=== PATIENT | female | born 1980 | race Caucasian/White ===

== ENCOUNTER → 2018-01-28 | Day surgery (SDC) | payer OTHER ==
[~2018-01-28] VITALS: Ht 172.7 cm; Wt 122.9 kg
[~2018-01-28] MED LIST: CELEXA20 M1; GLUCOPHAGE1000 M1 PO; HYCET 7.5 MG-3473 ML PO; LOPID600 MG PO; PEPCID20 M1 PO; PROBIOTIC1 EACH PO; PROTONIX40 M3 PO; SYNTHROID25 MCG PO; VITAMIN D-32000 UNI1 PO
--- NOTE | 2018-01-28 09:18 | Operative Report ---
Operative/Inv Procedure Report Surgery Date: 01/28/18 Name of Procedure: Laparoscopic cholecystectomy, EGD with biopsy Pre-Operative Diagnosis: Cholelithiasis, Morbid Obesity, GERD Post-Operative Diagnosis: Same Estimated Blood Loss: less than 50ml Surgeon/Rec Therapist: Eliot Whitehead DO Anesthesia: general endotracheal tube IV Fluids: 800 cc Drains: None Specimens: Gallbladder, antrum forcep biopsy Complications: None Condition: Stable Operative Indication: This is a 37-year-old female that presented to the office after undergoing a right upper quadrant ultrasound as part of her preoperative workup for bariatric surgery. Patient was found to have gallstones and did admit to some on and off epigastric abdominal pain. A laparoscopic possible open cholecystectomy was discussed in detail. All risks including but not limited to bleeding, infection , bile leak, and injury to surrounding duct/bowel were discussed in detail. I also discussed with the patient doing an upper endoscopy with biopsy of the same time. All risk including but not limited to bleeding were discussed in detail. The patient understood everything and decided to proceed. Operative/Procedure Note Note: The patient was brought to the operating room and placed on the operating room table in supine position. Venodyne stockings were placed and adequate general endotracheal anesthesia was obtained. The patient was prepped and draped in standard surgical fashion. We began the procedure by making a 2 cm transverse incision in the infraumbilical crease. The incision was carried down to the fascia, once the fascia was clearly visualized it was picked up between 2 john clamps. The fascia was divided in the midline and once we entered the peritoneum 2 stay 0 Vicryl sutures were placed on each side. A 12 mm blunt port was inserted and the abdominal cavity was insufflated to 15 mmHg. A 10 mm 30 laparoscope was introduced and upon initial examination no obvious gross pathology was seen. We did note a mildly distended gallbladder in the right upper quadrant. Accessory trocars were placed, all 5 mm, one in the epigastrium and 2 in the right upper quadrant (one in the midclavicular line and one in the anterior axillary line, both 2 fingerbreadths below the costal margin). The gallbladder was grasped with the lateralmost trocar and retracted up over the liver. Using the other 2 accessory trocars the infundibulum was grasped and the peritoneum was lysed using blunt dissection and using hook electrocautery. The cystic duct and cystic artery were visualized. The common bile duct was visualized and it was away from our area of dissection. The cystic duct and artery were skeletonized and divided between clips, 3 clips to stay and one clip on the gallbladder side for the duct and 2 clips to stay and one clip on the gallbladder side for the artery. The gallbladder was dissected off the liver bed using hook electrocautery maintaining hemostasis. Prior to completely removing the gallbladder off the liver bed we examined the area of dissection no obvious bile leak or bleeding was noted, the clips appeared to be in good position. The gallbladder was completely detached from the liver bed. We switched to a 5 mm laparoscope and a 10 mm Endobag was introduced through the umbilical trocar site. The gallbladder was placed in the bag and removed through the umbilicus. The abdomen was reinsufflated. We switched back to a 10 mm laparoscope and examined our area of dissection. No obvious bile leak or bleeding was noted. The right upper quadrant was irrigated until clear. All ports were removed under direct visualization, no obvious bleeding was noted. The umbilical trocar site was closed using 0 Vicryl suture. The skin was closed using 4-0 Monocryl. Steri-Strips and dressings were placed. At that point an upper endoscopy was performed. The endoscope was inserted under direct visualization into the posterior pharynx and into the esophagus. The entirety of the esophagus was examined and appeared normal up to the GE junction. The GE junction appeared normal was traversed with ease. The stomach was entered and the endoscope was advanced to the duodenum which appeared normal. Mild gastritis was noted in the antrum and forceps biopsy was taken to rule out H. pylori. At that point the endoscope was removed under direct visualization suctioning all the air out of the way out. The patient was then successfully extubated and transferred to the recovery room in stable condition. The patient tolerated the procedure well with no complications. Findings: No hiatal hernia, + gallstones, distended gallbladder, mild gastritis CC: Guerita VIDES,Rick Castellanos
== END ==
LOC: STS 02:30
DX: K80.10 Calculus of gallbladder with chronic cholecystitis without obstruction (principal); K21.9 Gastro-esophageal reflux disease without esophagitis; K29.70 Gastritis, unspecified, without bleeding; E66.01 Morbid (severe) obesity due to excess calories; Z68.41 Body mass index [BMI] 40.0-44.9, adult; E11.9 Type 2 diabetes mellitus without complications; Z79.84 Long term (current) use of oral hypoglycemic drugs; E03.9 Hypothyroidism, unspecified; R10.13 Epigastric pain; E78.5 Hyperlipidemia, unspecified
CPT/HCPCS: 81025; 88304; 88305; 88312; J0131; J0690; J2250

== ENCOUNTER 2018-04-29 01:39 | Inpatient (IN) | payer OTHER ==
[~2018-04-29] VITALS: Ht 172.7 cm; Wt 110.5 kg
[~2018-04-29 01:39] MED LIST changes: -HYCET 7.5 MG-3473 ML PO; -PROTONIX40 M3 PO
--- NOTE | 2018-04-29 09:28 | Admission Core Measures ---
Acute Coronary Syndrome (CM) ACS Core Measures Acute Coronary Syndrome Diagnosis No Congestive Heart Failure (NEW) CHF Core Measures Congestive Heart Failure Diagnosis No Cerebrovascular Accident CVA Core Measures CVA/TIA Diagnosis No Venous Thromboembolism VTE Core Kevin (View Protocol) VTE Risk Factors Surgery No Mechanical VTE Prophylaxis d/t N/A MechProphylax Ordered No VTE Pharm Prophylaxis d/t NA PharmProphylax ordered Problem List As ranked by this Provider includes Assessment & Plan 1. History of Jackson-en-Y gastric bypass 2. GERD (gastroesophageal reflux disease) 3. Diabetes 4. Morbid obesity 5. Hypothyroidism HOME MEDS Home Med List Famotidine (Pepcid) 20 MG TABLET 1 TAB PO PRN HEARTBURN (Reported) Gemfibrozil (Lopid) 600 MG TABLET 1 TAB PO DAILY CHOLESTEROL (Reported) Lactobacillus Acidophilus (Probiotic) 10 BILLION CELL CAPSULE 1 CAP PO TID SUPPLEMENT (Reported) Levothyroxine Sodium (Synthroid) 25 MCG TABLET 1 TAB PO DAILY REPLACEMENT ( Reported) Metformin HCl (Glucophage) 1,000 MG TABLET 1 TAB PO DAILY DM (Reported)
[2018-04-29] MEDS ORDERED: HYCET 7.5 MG-3473 ML PO (09:30)
[2018-04-29] MEDS ORDERED: PROTONIX40 M3 PO (09:30)
--- NOTE | 2018-04-29 11:59 | Operative Report ---
Operative/Inv Procedure Report Surgery Date: 04/29/18 Name of Procedure: Laparoscopic gastric bypass, laparoscopic small bowel resection Pre-Operative Diagnosis: Morbid Obesity BMI 38, DM, Hypothyroid, Hyperlipidemia Post-Operative Diagnosis: Same Estimated Blood Loss: less than 50ml Surgeon/Manufacturing Process Technician: Eliot Whitehead DO Anesthesia: general endotracheal tube IV Fluids: 1100 cc Drains: 10 Fr RUQ GUERA Drain Specimens: Portion small bowel Complications: None Condition: Stable Operative Indication: This is a 37-year-old female presented to the office for workup for bariatric surgery. After appropriate workup was completed I discussed with the patient the band, the sleeve, and the gastric bypass. The patient chose to undergo a gastric bypass. All risks including but not limited to bleeding, infection, leak, stricture, marginal ulcers, injury to surrounding bowel/esophagus/stomach/ liver/spleen, malabsorption/malnutrition, dumping syndrome, internal hernia/ small bowel obstruction, DVT/PE, and mortality of 09/999 patients were discussed in detail. The patient understood everything and decided to proceed. Operative/Procedure Note Note: The patient was brought to the operating room and placed on the table in supine position. Venodyne stockings were placed and adequate general endotracheal anesthesia was obtained. The patient was prepped and draped in standard surgical fashion. Began the procedure by making a 2 cm transverse incision supraumbilically and slightly to the left of the midline. Then using a 12 mm clear Visiport and a 10 mm 0 laparoscope the abdominal cavity was accessed. Great care was taken to go through the anterior rectus sheath, the posterior rectus sheath, and through the peritoneum. Once we entered the peritoneum the abdominal cavity was insufflated to 15 mmHg. Upon initial examination no obvious gross pathology was seen. Accessory trocars were placed, 5 mm in the epigastrium for the Lois liver retractor. The liver retractor was inserted and the liver was retracted anteriorly exposing the hiatus, no obvious hiatal hernia was seen. 5 mm ports were placed in the right and left upper quadrant, 5 mm left lateral port, and a 12 mm right lateral port. Began the procedure by mobilizing the angle of His and the left jodi of the diaphragm. The stomach was retracted towards the feet and the peritoneum was lysed until the left jodi was clearly visualized. We then brought our attention to the lesser curvature, and at the second vessel we began accessing the retrogastric space. Was done using Harmonic scalpel maintaining hemostasis. Once the retrogastric space was accessed we began creating our pouch using 60 mm purple staple load 4. The pouch was created around an Jeannine tube. Once the pouch was completely disconnected from the gastric remnant we examined the staple lines, some bleeding was noted and that was controlled using endoclips. We then brought our attention to the small bowel, the omentum was retracted above the transverse colon and the ligament of Treitz was identified. The small bowel was run 50 cm and divided using 60 mm weldon staple load. 2 clips were placed on the proximal staple line which was the biliopancreatic limb. That limb was run to the ligament of Treitz to assure that that was the blind limb. Following this the omentum was divided using Harmonic scalpel. After the omentum was divided the small bowel was coming up to the gastric pouch with no tension. At that point a in enterotomy was made 5 cm from the prior divided distal staple line, intermediate between the mesenteric and antimesenteric part. A gastrotomy was made anterior to the staple line. A side to side gastrojejunostomy was created using 45 mm purple staple load approximately 3-3-1/2 cm in diameter. The Jeannine tube was passed through the common enterotomy, and the common enterotomy was closed using 2-0 Vicryl suture in a running fashion double layer. We noted that the blind limb/candy cane of the anastomosis was too long, so a portion was resected using a 60 mm weldon staple load. That small bowel was removed through the 12 mm port site and handed off the field. Following this the small bowel was clamped off distal to the anastomosis, and we preformed an air and a methylene blue leak test. No obvious leak was noted. All the methylene blue was suctioned out. The small bowel was then run 100 cm and an enterotomy was made on the antimesenteric side. Another enterotomy was made on the antimesenteric side of the biliopancreatic limb. A side to side functional end end jejunojejunostomy was created using 60 mm weldon staple load. The common enterotomy was closed using a 60 mm weldon staple load followed by a 45 mm weldon staple load. Some bleeding was noted from the staple line and that was controlled using endoclips as well. The mesenteric defect was closed using 2-0 Tycron suture in an interrupted fashion. At that point we examined both anastomoses no obvious bleeding was noted and both appeared intact. A 2-0 Vicryl suture was placed on the anterior surface of the gastrojejunostomy imbricating the staple line. A 10 Polish GUERA drain was placed through the right upper quadrant incision under the liver and over the spleen. All ports were removed under direct visualization, no obvious bleeding was noted. Skin was closed using 4-0 Monocryl. Steri-Strips and dressings were placed. The patient was successfully extubated and transferred to the recovery room in stable condition. The patient tolerated the procedure well with no complications. Findings: No hiatal hernia, 100 cm alimentary limb CC: Rick Dexter MD
--- NOTE | 2018-04-29 12:35 | Patient Discharge Instructions ---
Discharge Instructions General Discharge Information You were seen/treated for: Morbid Obesity BMI 38, DM, Hypothyroid, Hyperlipidemia You had these procedures: Surgery Date: 04/29/18 Name of Procedure: Laparoscopic gastric bypass, laparoscopic small bowel resection Watch for these problems: fever>101.3, increased pain, redness/swelling/drainage, dizziness, shortness of breath, chest pains No bath, but you may shower: Yes Other wound care: ok to shower. keep incisions clean & dry. leave white steri strips in place. dry guaze dressing changes as needed for previous drain site. Diet Continue normal diet: No Recommended Diet: Bariatric Additional DIET Information: weekly bariatric diet stage advancements as directed, as tolerated Activity Full Activity/No Limits: No Activity Self Limited: Yes Pounds, do NOT lift more than: 10 Other activity limits: no heavy lifting. no strenuous activity. Additional ACTIVITY Info: walk frequently Acute Coronary Syndrome Inclusion Criteria At DC or during hospital stay patient has or had the following: ACS DIAGNOSIS No Discharge Core Measures Meds if any: Prescribed or Continued at Discharge Meds if any: NOT Prescribed or Continued at Discharge Congestive Heart Failure Inclusion Criteria At DC or during hospital stay patient has or had the following: CHF DIAGNOSIS No Discharge Core Measures Meds if any: Prescribed or Continued at Discharge Meds if any: NOT Prescribed or Continued at Discharge Cerebrovascular accident Inclusion Criteria At DC or during hospital stay patient has or had the following: CVA/TIA Diagnosis No Discharge Core Measures Meds if any: Prescribed or Continued at Discharge Meds if any: NOT Prescribed or Continued at Discharge Venous thromboembolism Inclusion Criteria VTE Diagnosis No VTE Type NONE VTE Confirmed by (Test) NONE Discharge Core Measures - Per Current guidelines, there needs to be overlap - treatment for the first 5 days of Warfarin therapy. - If discharged on Warfarin prior to 5 days of - overlap therapy, the patient will need to be - assessed for post discharge needs including - *Post discharge parental anticoagulation - *Warfarin and/or parental anticoagulation education - *Follow up date to check INR post discharge At least 5 days overlap therapy as Inpatient No Meds if any: Prescribed or Continued at Discharge Note: Overlap Therapy is Warfarin and Anticoagulant Meds if any: NOT Prescribed or Continued at Discharge
--- NOTE | 2018-04-29 12:39 | Surg Short-stay <48hrs Dis Sum ---
Visit Information Visit Dates Admission Date: 04/29/18 Discharge Date: 05/01/18 Surgical Short Stay DC Summary Admission Diagnosis: Morbid Obesity (BMI 38), DM, Hypothyroid, Hyperlipidemia Final Diagnosis: Morbid Obesity (BMI 38), DM, Hypothyroid, Hyperlipidemia Procedure(s): Surgery Date: 04/29/18 Name of Procedure: Laparoscopic gastric bypass, laparoscopic small bowel resection Summary/Significant Findings: Electively scheduled laparoscopic gastric bypass, and laparoscopic small bowel resection on 04/29/18 by for history of morbid obesity (BMI 38), DM, hypothyroidism, and hyperlipidemia. Started on stage 1 bariatric diet post- operatively. Upper gi study done on post-op day#1 to rule out leak and obstruction. GUERA drain left in place post-op to monitor drainage, but removed prior to discharge home. Pain control transitioned from iv to oral medication. Accuchecks monitored post-operatively, with sliding scale coverage as needed. No lovenox indicated at the time of discharge, according to the pre-op risk assessment. Condition at Discharge: stable Discharge Disposition: home or self care Discharge instructions provided to patient/family: Yes Post discharge follow-up plan: one week follow up with no lovenox indicated upon discharge Copies to: Guerita VIDES,Rick Castellanos
[2018-04-29 14:00] VITALS: BP 152/90
--- NOTE | 2018-04-29 15:35 | PN- Bariatrics ---
Subjective Subjective: POC feeling ok, some upper abd pain. some facial itching, denies rash. tolerating sips of stg1 diet, no n/v. no oob yet. dtv postop. no cp/sob. Objective Vital Signs and I&Os Vital Signs Date Time Temp Pulse Resp B/P B/P Pulse O2 O2 Flow FiO2 Mean Ox Delivery Rate 04/29 1400 97.9 82 18 152/90 95 Room Air Room Air 04/29 1400 95 Room Air Room Air Intake & Output 04/29 1600 04/29 0800 04/29 0000 04/28 1600 04/28 0800 04/28 0000 Intake Total 90 Output Total 20 Balance 70 Intake, Oral 90 Output, 20 Drainage Patient 244 lb Weight Weight Bed scale Measurement Method Physical Exam: gen- nad [id number] pulm- ctab abd- obese, soft, incisions dressed- scant bloody staining on left sided dressings. Jos in place, approx 20xx serosang in bulb. ext- calves soft nt, alps on bl Assessment/Plan Assessment/Plan A- POD0 sp lap camelia-en-y gastric bypass, with appropriate postop pain, with facial pruritis without rash likely due to anesthesia/pain meds, otherwise stable. P- benadryl prn for itch, though pt doesnt think she needs it just yet stg1 diet, then npo p mn for upper gi study in am dvt ppx am labs prn pain meds oob, ambualate dc planning Core Measures Venous Thromboembolism VTE Risk Factors Surgery No Mechanical VTE Prophylaxis d/t N/A MechProphylax Ordered No VTE Pharm Prophylaxis d/t NA PharmProphylax ordered
[2018-04-29 18:10] VITALS: BP 134/82
[2018-04-29 21:51] VITALS: BP 130/76
[2018-04-30 06:44] VITALS: BP 142/64
--- NOTE | 2018-04-30 07:24 | PN- Bariatrics ---
See Addendum Subjective Subjective: No events overnight. Patient admits to mild incisional pain this morning that is controlled. Did receive Dilaudid x2 but otherwise she states Tylenol is controlling her pain. Tolerated stage 1 diet yesterday without nausea or emesis. Does admit to pain in her pouch when sipping, taking ~ 15 cc at a time. Voiding freely, ambulating the hallway without issue. Passing small amount of flatus. Objective Vital Signs and I&Os Vital Signs Date Time Temp Pulse Resp B/P B/P Pulse O2 O2 Flow FiO2 Mean Ox Delivery Rate 04/30 0644 98.0 83 17 142/64 98 04/30 0600 95 Room Air 04/29 2200 95 Room Air 04/29 2151 98.3 69 17 130/76 98 Room Air 04/29 2104 Room Air 04/29 2000 96 Room Air 04/29 1810 97.5 72 20 134/82 96 Room Air 04/29 1800 94 Room Air Room Air 04/29 1400 97.9 82 18 152/90 95 Room Air Room Air 04/29 1400 95 Room Air Room Air Intake & Output 04/30 0800 08 0000 04/29 1600 04/29 0800 04/29 0000 04/28 1600 Intake Total 1100 1185 90 Output Total 1020 800 20 Balance 80 385 70 Intake, IV 1100 375 Intake, Oral 810 90 Output, 20 50 20 Drainage Output, Urine 1000 750 Patient 244 lb Weight Weight Bed scale Measurement Method Physical Exam: Afebrile, VSS. Cardiac: RRR Pulmonary: CTAB Abdominal: + hypoactive BS, obese, dressings c/d/i, minimal serosanguinous drainage noted to upper left dressings. R GUERA drain in place with serosanguinous drainage (20cc overnight). Soft, mild incisional tenderness to palpation. No rebound or guarding. Assessment/Plan Assessment/Plan A- POD#1 s/p lap camelia-en-y gastric bypass, with appropriate postop pain. Stable post operatively. Plan: - NPO this am for UGI - If UGI wnl will advance diet - Pain medication and antiemetics prn - Encourage OOB/IS/ambulation - Instructed patient to take smaller sips once diet re-advanced - Follow up am labs - DVT ppx - HSQ - dc planning - will d/w Dr. Whitehead Core Measures Venous Thromboembolism VTE Risk Factors Surgery No Mechanical VTE Prophylaxis d/t N/A MechProphylax Ordered No VTE Pharm Prophylaxis d/t NA PharmProphylax ordered
[2018-04-30 10:16] LABS: ABSOLUTE BASOPHIL COUNT 0 /CUMM (0.0-0.2); ABSOLUTE EOSINOPHIL COUNT 0.1 /CUMM (0.0-0.7); ABSOLUTE GRANULOCYTE CT 4.8 /CUMM (1.4-6.5); ABSOLUTE LYMPH COUNT 2.2 /CUMM (1.2-3.4); ABSOLUTE MONOCYTE COUNT 0.7 /CUMM (0.10-0.60); BASOPHIL % 0.5 % (0.0-2.0); EOSINOPHIL % 1.5 % (0-5); GRANULOCYTE % 60.8 % (42.2-75.2); HEMATOCRIT 31.9 % (37-47); MEAN CORPUSCULAR HGB 30.8 PG (27.0-31.0); MEAN CORPUSCULAR HGB CONC 33.9 G/DL (33.0-37.0); MEAN CORPUSCULAR VOLUME 90.6 FL (81.0-99.0); PLATELET COUNT 218 /CUMM (130-400); RED BLOOD CELL CT 3.52 /CUMM (4.20-5.40); WHITE BLOOD CELL COUNT 7.9 /CUMM (4.8-10.8)
--- NOTE | 2018-04-30 11:38 | RADIOLOGY REPORT ---
EXAMINATION: FL UPPER GI SERIES CLINICAL INFORMATION: 37-year-old female status post laparoscopic gastric bypass. Follow-up Gastrografin study. Postop day 1. COMPARISON: None TECHNIQUE: A single contrast upper GI series with fluoroscopy and spot imaging was performed. The patient ingested 60 mL of Gastrografin without difficulty and was evaluated in the upright and recumbent positions. FINDINGS: The scouts radiograph shows postsurgical changes within the epigastric region and also at left mid abdomen. Postsurgical changes of gastric bypass is noted. There is no evidence of any leak seen. Free flow of Gastrografin was noted at the site of the anastomosis into the small bowel loops. Both afferent as well as efferent loops are visualized. FLUOROSCOPY TIME: 0.57 seconds. NUMBER OF IMAGES: 7 series. IMPRESSION: Expected postsurgical changes of gastric bypass without evidence of any leak or obstruction.
[2018-04-30 15:32] VITALS: BP 138/74
[2018-04-30 22:33] VITALS: BP 130/82
[2018-05-01 06:46] VITALS: BP 138/80
--- NOTE | 2018-05-01 08:16 | PN- Bariatrics ---
Subjective Subjective: Reports pain controlled. Tolerating stage 1 diet. No nausea. Passing flatus. Voiding well. Ambulating without difficulty. No dizziness. No shortness of breath. No chest pains. Anticipates discharge to home today. Objective Vital Signs and I&Os Vital Signs Date Time Temp Pulse Resp B/P B/P Pulse O2 O2 Flow FiO2 Mean Ox Delivery Rate 05/01 0646 98.0 63 18 138/80 98 Room Air 05/01 0600 98 Room Air 04/30 2233 98.5 68 20 130/82 99 Room Air 04/30 2200 99 Room Air 04/30 1600 96 Room Air 04/30 1532 98.3 67 18 138/74 97 Room Air 04/30 1400 95 Room Air Room Air Intake & Output 05/01 0805/01 0000 04/30 1600 04/30 0804/30 0000 Intake Total 535 1110 1240 1100 1185 Output Total 330 231 503 5084 800 Balance 205 260 260 80 385 Intake, IV 993 175 0402 1100 375 Intake, Oral 135 760 240 810 Number 1 Bowel Movements Output, 30 30 20 50 Drainage Output, Urine 300 854 955 5021 750 Physical Exam: General - alert & oriented x 3. comfortable. no acute distress. Lungs - clear bilaterally. no w/r/r. Cardiac - s1s2. reg. Abdomen - soft. dressings stained but intact. CAROL drain removed (serosang drainage, 30mls o/n). expected ruddy-incisional tenderness. active bowel sounds. Extremities - warm bilaterally. no c/c/e. calves soft and nontender b/l. Current Medications: Current Medications Sig/Aileen Start time Last Medication Dose Route Stop Time Status Admin Acetaminophen 1,000 MG Q6H 04/29 2000 DC 04/30 N/A 1 UNIT IV 04/30 0814 0803 Citalopram 60 MG DAILY 04/30 09 AC 04/30 Hydrobromide PO 1142 Dexamethasone 8 MG ONCE PRN 04/29 1330 AC IV PUSH Dextrose/Sodium 1,000 ML Q8H 04/29 1330 AC 04/30 Chloride IV 1330 Heparin Sodium 5,000 UNIT Q8 04/29 1400 AC 05/01 (Porcine) SC 0521 Hydrocodone Bitart/ 15 ML Q6P PRN 04/30 08 AC 04/30 Acetaminophen PO 2325 Hydromorphone HCl 0.5 MG Q2 HRS NEEDED PRN 04/29 2300 AC 04/30 IV 1225 Insulin Aspart 0 Q6 04/29 1200 AC 04/29 SC 1804 Levothyroxine Sodium 0.025 MG DAILY AC 04/30 0700 AC 05/01 PO 0522 Ondansetron HCl 4 MG Q6P PRN 04/29 1330 AC IV Pantoprazole Sodium 40 MG DAILY 04/30 0900 AC 04/30 IV 0803 Patient Medication 1 ED ONE ONE 04/30 1430 DC Teaching ED 04/30 1431 Potassium Chloride 40 MEQ ONCE ONE 04/30 1530 DC 04/30 PO 04/30 1531 1701 Simethicone 40 MG Q6P PRN 04/29 1330 AC 05/01 PO 0716 Results Last 48 Hours of Labs: Laboratory Tests 05/01 04/30 0650 0925 Chemistry Sodium (137 - 145 mmol/L) 139 140 Potassium (3.5 - 5.1 mmol/L) 3.3 L 3.0 L Chloride (98 - 107 mmol/L) 108 H 109 H Carbon Dioxide (22 - 30 mmol/L) 22 23 Anion Gap (5 - 16) 9 8 BUN (7 - 17 mg/dL) 9 Creatinine (0.5 - 1.0 mg/dL) 0.4 L Estimated GFR (>60 ml/min) > 60 BUN/Creatinine Ratio (7 - 25 %) 22.5 Glucose (65 - 99 mg/dL) 100 H Magnesium (1.6 - 2.3 mg/dL) 1.7 Hematology CBC w Diff NO MAN DIFF REQ WBC (4.8 - 10.8 /CUMM) 7.9 RBC (4.20 - 5.40 /CUMM) 3.52 L Hgb (12.0 - 16.0 G/DL) 10.8 L Hct (37 - 47 %) 31.9 L MCV (81.0 - 99.0 FL) 90.6 MCH (27.0 - 31.0 PG) 30.8 MCHC (33.0 - 37.0 G/DL) 33.9 RDW (11.5 - 14.5 %) 13.0 Plt Count (130 - 400 /CUMM) 218 MPV (7.4 - 10.4 FL) 9.0 Gran % (42.2 - 75.2 %) 60.8 Lymphocytes % (20.5 - 51.1 %) 28.4 Monocytes % (1.7 - 9.3 %) 8.8 Eosinophils % (0 - 5 %) 1.5 Basophils % (0.0 - 2.0 %) 0.5 Absolute Granulocytes (1.4 - 6.5 /CUMM) 4.8 Absolute Lymphocytes (1.2 - 3.4 /CUMM) 2.2 Absolute Monocytes (0.10 - 0.60 /CUMM) 0.7 H Absolute Eosinophils (0.0 - 0.7 /CUMM) 0.1 Absolute Basophils (0.0 - 0.2 /CUMM) 0 Assessment/Plan Assessment/Plan This 37 year old female with hx morbid obesity (BMI 38), DM, Hypothyroidism, Hyperlipidemia, now POD#2 s/p laparoscopic gastric bypass, laparoscopic small bowel resection, carol x 1 tolerating stage 1 diet pain controlled CAROL drain removed oob/ambulating replete k (3.3 today from 3.0 yesterday) hep sc - dvt ppx protonix - gi ppx accuchecks stable d/c home today will d/w Core Measures Venous Thromboembolism VTE Risk Factors Surgery No Mechanical VTE Prophylaxis d/t N/A MechProphylax Ordered No VTE Pharm Prophylaxis d/t NA PharmProphylax ordered
== END 2018-05-01 10:22 | DRG 621 ==
LOC: SDA 01:39 → ENRESERV 12:16 → ENTRNSPT 13:02 → EDTRNSPT 13:06 → EDTRNSPTSTS 13:06 → 2NB 13:16 → CMPTRNSPT 13:35 → ENPENDDIS 05-01 08:33 → 2NB 05-01 10:22
PROVIDERS: Physician Assistant
PROC: 0D164ZA Bypass Stomach to Jejunum, Percutaneous Endoscopic Approach (ICD-10-PCS; principal; 2018-04-29)
PROC: 0DB84ZZ Excision of Small Intestine, Percutaneous Endoscopic Approach (ICD-10-PCS; principal; 2018-04-29)
PROC: 3E0T3BZ Introduction of Anesthetic Agent into Peripheral Nerves and Plexi, Percutaneous Approach (ICD-10-PCS; 2018-04-29)
DX: E66.01 Morbid (severe) obesity due to excess calories (principal); Z68.38 Body mass index [BMI] 38.0-38.9, adult; E03.9 Hypothyroidism, unspecified; E78.5 Hyperlipidemia, unspecified; E11.9 Type 2 diabetes mellitus without complications; Z90.49 Acquired absence of other specified parts of digestive tract; E06.3 Autoimmune thyroiditis; Z79.84 Long term (current) use of oral hypoglycemic drugs; K21.9 Gastro-esophageal reflux disease without esophagitis
CPT/HCPCS: 2NBP; 36592; 74240; 81025; 82436; J0131; J0690; J1100; J1644; J2405; J7042; Q9968